=== PATIENT | male | born 1975 | race African-American/Black ===

== ENCOUNTER → 2018-05-31 | Outpatient (CLI) | payer OTHER ==
[~2018-05-31] MED LIST: ARGINAID POWDE1 EACH PO; CEFTRIAXON1 GM/50 M1 IVPB; DAKIN'S473 M2 TOP; ENOXAPARIN40 MG/0.1 SUBQ; HYDROCODONE-AP1 EAC6 PO; LINEZOLID600 MG PO; MEROPENEM-500 MG/50 IVPB; MIRALAX17 GM PO; NEURONTIN 300300 M1 PO; NORCO 10-325 T1 EACH PO; PROSOURCE PROT946 ML PO; PROSOURCE275 GM PO; THERA TABLET400 MCG PO; TYLENOL325 MG PO; VITAMINC500 PO; ZANAFLEX2 MG PO; ZANAFLEX4 MG PO; ZINC SULFATE 2220 M1 PO
[2018-05-31 09:40] VITALS: BP 110/72
[2018-05-31 10:44] VITALS: BP 103/62; BP 108/63
[2018-05-31 13:07] VITALS: BP 108/63; BP 110/58; BP 116/75
[2018-05-31 15:20] VITALS: BP 110/72
== END ==
LOC: OPONC 06:33
DX: D50.9 Iron deficiency anemia, unspecified (principal)
CPT/HCPCS: 91030; 95113

== ENCOUNTER 2018-10-06 16:50 | Emergency (ER) | payer OTHER ==
[~2018-10-06] VITALS: Ht 180.3 cm; Wt 76.7 kg
[2018-10-06 17:15] LABS: URINE BLOOD 3+ (Negative); URINE CLARITY CLEAR; URINE COLOR YELLOW; URINE GLUCOSE-RANDOM* NEGATIVE (Negative); URINE KETONES 1+ (Negative); URINE PROTEIN (DIPSTICK) 2+ (Negative); URINE SPECIFIC GRAVITY >= 1.030 (1.005-1.035); URINE UROBILINOGEN 0.2 E.U./dl (0.2-1.0)
[2018-10-06 17:16] LABS: URINE LEUKOCYTES-REFLEX 2+ (Negative); URINE NITRITE-REFLEX POSITIVE (Negative)
[2018-10-06 17:19] LABS: ICTOTEST (BILI CONFIRMATORY) Negative (Negative); URINE BILIRUBIN NEGATIVE (Negative)
[2018-10-06 17:21] LABS: CASTS None Seen /LPF (None Seen); CRYSTALS None Seen /LPF (None Seen); SQUAMOUS 0-3 Few /LPF (0-3); URINE RBC >20 Many /HPF (0-2)
[2018-10-06 17:22] LABS: BACTERIA-REFLEX >30 Many /HPF (None Seen); MUCUS 4-6 Moderate strn/LPF (None Seen)
[2018-10-06 17:54] LABS: BASOPHILS 0.4 % (0.0-2.0); EOSINOPHILS 0.8 % (0.0-3.0); HEMATOCRIT 41.2 % (42.0-52.0); HEMOGLOBIN 13.9 gm/dL (14.0-18.0); LYMPHOCYTES 29.2 % (24.0-44.0); MCH 27.6 pg (26.0-34.0); MCHC 33.7 g/dL (28.0-37.0); MONOCYTES 6.4 % (1.0-8.0); PLATELET COUNT 323 thou/uL (150-400); POLYS 63.2 % (36.0-66.0); RBC 5.03 mil/uL (4.50-6.00); RDW 14.9 % (10.5-14.5); WBC 6.4 thou/uL (4.0-11.0)
[2018-10-06 18:03] LABS: CALCIUM 10.1 mg/dL (8.5-10.1); CREATININE 0.9 mg/dL (0.7-1.3); POTASSIUM 3.4 mmol/L (3.5-5.1)
[2018-10-06] MEDS ORDERED: ZANAFLEX2 MG PO (18:33)
[2018-10-06] MEDS ORDERED: KEFLEX500 M1 PO (18:33)
[2018-10-06 19:32] VITALS: BP 139/85
== END 2018-10-06 19:41 | disposition home or self-care (01) ==
LOC: ER 16:50
PROVIDERS: Physician Assistant
DX: N39.0 Urinary tract infection, site not specified (principal); Z88.1 Allergy status to other antibiotic agents; Z88.8 Allergy status to other drugs, medicaments and biological substances; Z86.2 Personal history of diseases of the blood and blood-forming organs and certain disorders involving the immune mechanism